=== PATIENT | female | born 1940 | race Caucasian/White ===

== ENCOUNTER 2019-07-21 11:58 | Inpatient (IN) | payer OTHER ==
[~2019-07-21] VITALS: Ht 162.6 cm; Wt 46.7 kg
[2019-07-21 12:52] VITALS: BP_SYST 107
[2019-07-21] MEDS ORDERED: FLU VACC TS2019(65UP)/MF59C/PF 45 MCG/0.5 ML SYRINGE I.M. PRN (13:00)
--- NOTE | 2019-07-21 13:00 | NUR ---
Patient received a/ox2, reoriented to place, time and event, patient denies pain, is cooperative, assessment complete, educated the patient wafer fabrication technician light system and plan of care, she is agreeable at this time, bed in lowest position, three side rails up, bed alarm on, bed close to nursing station, fall and aspiration precautions in place, call light placed within reach.
[2019-07-21] MEDS ORDERED: DONE10TA44 PO (13:03)
[2019-07-21] MEDS ORDERED: MEMA5TAB PO (13:03)
[2019-07-21] MEDS ORDERED: RANI300T7 PO (13:03)
[2019-07-21] MEDS ORDERED: RISP0.5T5 PO (13:03)
[2019-07-21] MEDS ORDERED: CIPR-211 PO (13:06)
[2019-07-21] MEDS ORDERED: VEN2 PO (13:06)
[2019-07-21] MEDS ORDERED: PRO20 PO (13:06)
[2019-07-21] MEDS ORDERED: MONT10TA22 PO (13:06)
[2019-07-21] MEDS ORDERED: ACET325C6 PO (13:06)
--- NOTE | 2019-07-21 13:13 | NUR ---
Dr. Jay paged received call back, orders received will follow up.
--- NOTE | 2019-07-21 13:40 | NUR ---
Attempted Urine Collection attempted straight catheter for urine collection, no urine. Performed bladder scan at bedside, 10ml showing in bladder scan at this time, encouraging patient to drink fluids and to inform nurse when she needs to void, patient verbalized understanding at this time.
[2019-07-21 13:51] LABS: BASOPHILS % (AUTO) 0.4 % (0.0-2.0); EOSINOPHILS # (AUTO) 0.1 K/uL (0.0-0.4); HEMATOCRIT 34.3 % (36-48); HEMOGLOBIN 11.2 g/dL (12.0-16.0); LYMPHOCYTES # (AUTO) 0.5 K/uL (1.0-5.5); LYMPHOCYTES % (AUTO) 10.2 % (20.5-51.5); MEAN CORPUSCULAR HEMOGLOBIN 28 pg (27-31); MEAN CORPUSCULAR HGB CONC 33 % (32-36); MEAN CORPUSCULAR VOLUME 87 fL (79.0-98.0); MONOCYTES # (AUTO) 0.5 K/uL (0.0-1.0); MONOCYTES % (AUTO) 8.9 % (1.7-9.3); NEUTROPHILS # (AUTO) 4.2 K/uL (1.8-7.7); NEUTROPHILS % (AUTO) 79.5 % (40.0-70.0); PLATELET COUNT (AUTO) 127 K/uL (130-430); RED BLOOD CELL COUNT(AUTO) 3.95 MIL/uL (4.2-6.2); RED CELL DISTRIBUTION WIDTH 14.5 % (9.0-15.0); WHITE BLOOD COUNT (AUTO) 5.4 K/uL (4.8-10.8)
[2019-07-21 14:08] LABS: ALANINE AMINOTRANSFERASE 12 U/L (12-78); ALBUMIN 2.9 g/dL (3.4-4.8); ANION GAP 6 (5-15); ASPARTATE AMINOTRANSFERASE 13 U/L (10-37); CALCIUM 8.6 mg/dL (8.4-11.0); CHLORIDE 102 mmol/L (98-107); CREATININE 0.77 mg/dL (0.55-1.30); GLUCOSE 99 mg/dL (70-99); POTASSIUM 3.6 mmol/L (3.5-5.1); SODIUM SERUM 135 mmol/L (136-145); TOTAL BILIRUBIN 0.2 mg/dL (0.0-1.0); UREA NITROGEN, BLOOD 16 mg/dL (8-21)
--- NOTE | 2019-07-21 14:43 | NUR ---
IV Insertion IV started on Left AC 24G. Successful after 2 attempts. Will observe for any signs of infiltration.
[2019-07-21 15:26] VITALS: BP_SYST 102
--- NOTE | 2019-07-21 15:50 | NUR ---
Called Radiology to confirm if CT head order was received, order received, to be followed up this evening.
--- NOTE | 2019-07-21 16:02 | NUR ---
RN rounds/Patient voided patient resting in bed, awake, offered water, patient drank water and tolerated well, aspiration precautions in place, offered patient to use bedpan, she agreed and was able to void, urine sent to lab for urinalysis and culture, will follow up with results, patient denies pain, has no other needs at this time, continuing to monitor, bed in lowest position, three side rails up, bed alarm on, bed close to nursing station, call light placed within reach, fall and aspiration precautions in place.
[2019-07-21 16:30] LABS: BILIRUBIN,URINE NEGATIVE (NEGATIVE); BLOOD, URINE 3+ (NEGATIVE); COLOR,URINE YELLOW (YELLOW); GLUCOSE,URINE NEGATIVE (NEGATIVE); KETONES,URINE NEGATIVE (NEGATIVE); LEUKOCYTE ESTERASE ,URINE NEGATIVE (NEGATIVE); NITRITE, URINE NEGATIVE (NEGATIVE); PROTEIN URINE NEGATIVE (NEGATIVE); UROBILINOGEN,URINE 0.2 (0.2-1.0)
--- NOTE | 2019-07-21 16:35 | NUR ---
Dr. Jay rounds assessed patient, will follow up with new orders.
[2019-07-21 16:41] LABS: CLARITY/URINE SLIGHTLY HAZY (CLEAR)
[2019-07-21] MEDS: KCL 20 mEq in D5/0.45NS 1000mL 1,000 ML IV SCH (16:53)
[2019-07-21 16:55] LABS: BACTERIA,URINE RARE /HPF (None Seen); MUCUS,URINE None Seen /LPF (None Seen); WBC,URINE 0-3 /HPF (0-3)
--- NOTE | 2019-07-21 17:03 | NUR ---
IVF/ Flu Vaccine patient resting in bed, awake, denies pain, educated on IVF uses and on Flu Vaccination benefits, patient verbalized understanding at this time, IV line is patent and infusing well, Flu vaccine administered per protocol, no other needs at this time, continuing to monitor, bed in lowest position, three side rails up, bed alarm on, bed close to nursing station, fall and aspiration precautions in place, call light placed within patient reach. Addendum: 07/21/19 at 1707 by William Salinas RN Educated the patient on uses and benefits of SCDs, she verbalized understanding, applied per MD orders.
--- NOTE | 2019-07-21 17:14 | NUR ---
Patient off the unit to CT scan at this time, patient in stable condition.
--- NOTE | 2019-07-21 17:30 | NUR ---
Patient back on the unit from CT scan, stable condition, placed patient back on IV fluids and SCD's, IV line is patent and infusing well, set up patient to eat dinner, aspiration precautions in place, continuing to monitor patient, bed in lowest position, three side rails up, bed alarm on, bed close to nursing station, fall precautions also in place, call light placed within reach.
--- NOTE | 2019-07-21 18:40 | NUR ---
Closing note patient resting in bed, awake, finished eating dinner, all needs met, will endorse report to NOC shift nurse, IV line is patent and infusing well, bed in lowest position, three side rails up, bed alarm on, bed close to nursing station, fall and aspiration precautions in place, call light placed within reach.
[2019-07-21 20:00] VITALS: BP_SYST 100
[2019-07-21] MEDS: ALBUTEROL SULFATE 2 MG TABLET PO SCH (21:00)
[2019-07-21 23:46] VITALS: BP_SYST 111
[2019-07-22] VITALS (7 sets, daily range): BP systolic 96–156
--- NOTE | 2019-07-22 07:15 | NUR ---
sbar report recieved at the bedside. patient alert awake x 2. breathing even and unlabored. no oxygen noted. abdomen soft and non distended. has no iv access noted. has bruise/abrasion on the left forehead noted. purplish noted. no odor nor drainage noted. vitals signs stable. afebrile. bed low position, alarmed and locked. call lights within reach.
[2019-07-22] MEDS: MONTELUKAST 10 MG TABLET PO SCH (08:58)
[2019-07-22] MEDS: FLUoxetine HCL 10 MG CAPSULE (PROzac) PO SCH (08:59)
[2019-07-22] MEDS: FAMOTIDINE 20 MG TABLET PO SCH (09:00)
--- NOTE | 2019-07-22 09:00 | NUR ---
placed a iv access on the left wrist #22. continue to infused iv fluids of D51/2NS +20 at 75cc/hr infusing on well. wrapped with kerlix on it.
[2019-07-22] MEDS: MEMANTINE HCL 5 MG TABLET PO SCH (09:01)
[2019-07-22] MEDS: DONEPEZIL HCL 5 MG TABLET (ARICEPT) PO SCH (09:01)
[2019-07-22] MEDS: ALBUTEROL SULFATE 2 MG TABLET PO SCH ×2 (09:11→20:21)
--- NOTE | 2019-07-22 09:30 | NUR ---
inna care and total bed bath done by Luis Mackenzie.
--- NOTE | 2019-07-22 09:59 | NUR ---
Nutrition Update Narciso Scale 15 noted. Pt admitted for hypotension, dehydration, multiple falls Diet: mechanical soft BMI: 17.7 kg/m2 RD to follow per nutrition care standards.
--- NOTE | 2019-07-22 10:00 | NUR ---
due medication given by the student nurse and with their clinical instructor. crushed with apple sauce.
--- NOTE | 2019-07-22 11:28 | NUR ---
Safety Pt pulling out I.V. Educated pt on why it is needed. Continue to reinforce necessity of I.V. Pt is unable to state purpose of I.V. Ensured bed is in low position, bed brake on. Call light within reach, demonstrated correct usage.
--- NOTE | 2019-07-22 12:00 | NUR ---
patient self fed, but need to assists. no complained made so far.
--- NOTE | 2019-07-22 15:00 | NUR ---
patient awake but confused. but stable.
--- NOTE | 2019-07-22 16:52 | NUR ---
PATIENT STILL ASLEEP. NO COMPLAINED MADE. QUITE AT THIS TIME.
--- NOTE | 2019-07-22 17:15 | NUR ---
PT STABLE. QUITE AND RESTING.
--- NOTE | 2019-07-22 18:32 | NUR ---
PATIENT EATING DINNER AND ASSISTS ON ADLS.
--- NOTE | 2019-07-22 19:15 | NUR ---
ENDORSED TO INCOMING NURSE PAPI CRUZ.
--- NOTE | 2019-07-22 19:46 | NUR ---
PM SHIFT ASSESSMENT Received patient lying in bed, aox2, on room air, vital signs stable, patient denies any pain or discomfort at this time, IV line to left wrist intact and patent, IVF of d51/2 NS with 20 KCL infusing at 75 ml/hr, patient repositioned and turned with pillow support, incontinent, bilateral SCDs to lower legs in place, fall and safety measures in place, bed alarm on, will closely monitor.
[2019-07-22] MEDS: KCL 20 mEq in D5/0.45NS 1000mL 1,000 ML IV SCH ×2 (20:21→23:06)
--- NOTE | 2019-07-22 21:02 | NUR ---
MED PASS Patient awake, due medications administered, aspiration precautions maintained, patient tolerated well, incontinence care provided, repositioned for comfort, safety measures in place, will closely monitor.
--- NOTE | 2019-07-22 22:07 | NUR ---
RN ROUNDS Patient awake, denies any pain or discomfort at this time, repositioned for comfort, safety measures in place, bed alarm on, will closely monitor.
[2019-07-23 00:15] VITALS: BP_SYST 107
--- NOTE | 2019-07-23 00:24 | NUR ---
RN ROUNDS Patient asleep, breathing is even and unlabored, vital signs stable, repositioned with pillow support, safety measures in place, bed alarm on, will closely monitor.
--- NOTE | 2019-07-23 02:17 | NUR ---
RN ROUNDS Patient continues to sleep, breathing is even and unlabored, repositioned with pillow support, safety measures in place, bed alarm on, will closely monitor.
--- NOTE | 2019-07-23 04:13 | NUR ---
RN ROUNDS Patient continues to sleep, breathing is even and unlabored, repositioned with pillow support, safety measures in place, bed alarm on, will monitor.
--- NOTE | 2019-07-23 06:38 | NUR ---
CLOSING NOTE Patient awake, denies any pain or discomfort at this time, remains on room air, IV line intact and patent, IVF continues to infuse, repositioned for comfort, needs attended to, no significant change through out the shift, safety measures maintained, will continue to monitor until report given to am nurse.
--- NOTE | 2019-07-23 07:30 | NUR ---
Opening note Patient resting in bed at this time, A/Ox2, no SOB. No complaints of pain. IV patent, intact, and infusing fluids as ordered. no adverse side effects noted. On safety and aspiration precautions, HOB kept elevated, 3 side rails up, call light within reach. Patient in stable condition. Will continue to monitor.
[2019-07-23 08:26] VITALS: BP_SYST 122
[2019-07-23] MEDS: ALBUTEROL SULFATE 2 MG TABLET PO SCH ×2 (08:44→20:21)
[2019-07-23] MEDS: MONTELUKAST 10 MG TABLET PO SCH (08:45)
[2019-07-23] MEDS: FLUoxetine HCL 10 MG CAPSULE (PROzac) PO SCH (08:45)
[2019-07-23] MEDS: DONEPEZIL HCL 5 MG TABLET (ARICEPT) PO SCH (08:45)
[2019-07-23] MEDS: MEMANTINE HCL 5 MG TABLET PO SCH (08:45)
[2019-07-23] MEDS: FAMOTIDINE 20 MG TABLET PO SCH (08:45)
--- NOTE | 2019-07-23 08:56 | NUR ---
Medications All morning medications given as ordered. Tolerating well. No nausea, no vomiting. Patient able to swallow medications Okay.
--- NOTE | 2019-07-23 10:44 | NUR ---
skin care Skin care provided, linens changed. Dressing done on left forearm skin tear, no active bleeding. Peeled skin noted. foam dressing applied. ice water refilled, no other needs.
[2019-07-23 11:18] VITALS: BP_SYST 114
--- NOTE | 2019-07-23 12:33 | NUR ---
Lunch Patient sitting up in bed, eating lunch, tolerating well. No nausea, no vomiting. No complaints of abdominal pain.
[2019-07-23] MEDS: KCL 20 mEq in D5/0.45NS 1000mL 1,000 ML IV SCH (13:23)
--- NOTE | 2019-07-23 14:36 | NUR ---
rounds patient noted with incontinence of urine, perineal care provided. Gown changed. Ice water refilled. Offered patient water, patient drank 1 cup. Offered patient bedpan, patient denied need. No other needs at this time.
[2019-07-23 15:16] VITALS: BP_SYST 118
--- NOTE | 2019-07-23 15:43 | NUR ---
Dietitian Recommendations * Recommend mechanical soft diet with Ensure Enlive BID (provides 700 kcal/day and 40 gm of protein/day) * Encourage PO intake LP, RD Please refer to Nutrition Assessment for details. Signed: 07/23/19 at 1543 by Briana PASCUAL <Co-Signature Required> Co-Signed: 07/23/19 at [address] Addendum: 07/23/19 at 1544 by Briana PASCUAL Amended: Links added.
--- NOTE | 2019-07-23 15:53 | NUR ---
Rounds Patient resting in bed at this time, no complaints of pain. Offered patient bed berman, patient denied need. Noted with incontinence of bladder. Skin care provided. No other needs at this time.
--- NOTE | 2019-07-23 17:30 | NUR ---
Dinner patient sitting up in bed at this time, eating dinner, tolerating well. no nausea, no vomiting. No complaints of pain.
--- NOTE | 2019-07-23 19:01 | NUR ---
Closing note Patient resting in bed at this time, A/Ox2, no SOB. No complaints of pain. IV patent, intact, and infusing fluids as ordered. no adverse side effects noted. On safety and aspiration precautions, HOB kept elevated, 3 side rails up, call light within reach. Patient in stable condition. All needs met.
--- NOTE | 2019-07-23 19:15 | NUR ---
ROUNDS PATIENT IN BED, AWAKE, ALERT, ORIENTED X2, VITALS STABLE, NO SIGNS OF ANY PAIN AND DISCOMFORT NOTED. ASSESSMENT DONE AND DOCUEMNTED. SEE FLOWSHEET. NEEDS ATTENDED TO. SAFETY AND FALL MEASURES IN PLACED. BED IN LOW AND LOCKED POSITION. BED ALARM ON. WILL CONTINUE TO MONITOR.
[2019-07-23 20:00] VITALS: BP_SYST 126
--- NOTE | 2019-07-23 21:16 | NUR ---
MEDICATION DUE MEDICATIONS GIVEN SCHEDULED, TOLERATED WELL. WILL CONTINUE TO MONITOR.
[2019-07-24] VITALS: BP_SYST 116
--- NOTE | 2019-07-24 00:14 | NUR ---
PATIENT RESTING: Patient resting quietly. No acute distress noted. Vital signs within normal range.
--- NOTE | 2019-07-24 02:13 | NUR ---
NOTES PATIENT ASLEEP, RESPIRATIONS EVEN AND UNLABORED, WILL CONTINUE TO MONITOR.
--- NOTE | 2019-07-24 04:08 | NUR ---
NOTES PATIENT ASLEEP, VITALS STABLE, NO SIGNS OF ANY PAIN AND DISCOMFORT NOTED. WILL CONTINUE TO MONITOR.
[2019-07-24] MEDS: KCL 20 mEq in D5/0.45NS 1000mL 1,000 ML IV SCH ×2 (06:06→16:00)
--- NOTE | 2019-07-24 06:28 | NUR ---
CLOSING NOTES PATIENT AWAKE, VITALS STABLE, IV INFILTRATED AND REINSERTED ON THE RIGHT FOREARM G. 22, PATENT. ALL NEEDS ATTENDED TO. SAFETY MEASURES MAINTAINED. BED IN LOW AND LOCKED POSITION. CALL LIGHT PLACED WITHIN REACH.
[2019-07-24 08:00] VITALS: BP_SYST 141
--- NOTE | 2019-07-24 08:00 | NUR ---
Initial notes- In bed, awake. Oriented to name and birthdate at this time. Able to feed self slowly. has good appetite. Incontinent of bowel and bladder. IVF infusing well. No acute distress noted. Will continue to monitor.
[2019-07-24] MEDS: FLUoxetine HCL 10 MG CAPSULE (PROzac) PO SCH (08:36)
[2019-07-24] MEDS: DONEPEZIL HCL 5 MG TABLET (ARICEPT) PO SCH (08:36)
[2019-07-24] MEDS: MONTELUKAST 10 MG TABLET PO SCH (08:36)
[2019-07-24] MEDS: FAMOTIDINE 20 MG TABLET PO SCH (08:36)
[2019-07-24] MEDS: MEMANTINE HCL 5 MG TABLET PO SCH (08:36)
--- NOTE | 2019-07-24 09:00 | NUR ---
Pt take all her morning meds.
--- NOTE | 2019-07-24 10:42 | NUR ---
Pt sleeping at this time. Breathing even and unlabored. No distress noted.
[2019-07-24] MEDS: ALBUTEROL SULFATE 2 MG TABLET PO SCH (10:44)
--- NOTE | 2019-07-24 11:20 | NUR ---
Discharge Planning: DCP faxed referral to [facility] (f [phone] p [phone]) DCP to follow up Addendum: 07/24/19 at 1252 by Sanna Ordonez DP DCP followed up lm with Angelina at [facility] ( [phone] p [phone]) for Ron. Addendum: 07/24/19 at 1617 by Sanna Ordonez DP DCP spoke to Ron at [facility] (f [phone] p [phone]) pt accepted to [facility], transportation arrange [place] [id number] ([phone]) Will Call nurse made aware, patient packet taken to nurse station. Nurse will call family to make aware.
--- NOTE | 2019-07-24 11:20 | NUR ---
Ambulate with physical therapy with front wheel walker inside the room only. Pt stated that she feels tired.
[2019-07-24 12:10] VITALS: BP_SYST 112
--- NOTE | 2019-07-24 14:00 | NUR ---
Pt just woke up. Give her food for lunch. Denies any pain or discomfort. No acute distress noted.
--- NOTE | 2019-07-24 16:22 | NUR ---
Pt has a bed in [facility], trying to reach the son Chase Running but unable to reach. leave voice mail.
--- NOTE | 2019-07-24 16:30 | NUR ---
Son Called back and agreed patient to be transfererred to [facility].
--- NOTE | 2019-07-24 17:11 | NUR ---
Spoke with Fariha at [facility]. Pickup arranged for 1900 hours to [facility].
--- NOTE | 2019-07-24 17:27 | NUR ---
Report given to Shohsana at [facility].
[2019-07-24 18:14] VITALS: BP_SYST 110
--- NOTE | 2019-07-24 18:42 | NUR ---
In bed, No acute distress noted. Waiting for ambulance to come.
--- NOTE | 2019-07-24 19:41 | NUR ---
DISCHARGE Patient in bed, awake, no s/s of acute distress noted. Breathing even and unlabored. Vitals stable. IV site at right forearm, no signs of infiltration or infection noted, patent. All needs met throughout shift. Name band removed. Report given to EMTCammie, from EMT of [facility]. Patient escorted out via gurney.
== END 2019-07-24 19:42 | DRG 690 ==
LOC: STU 12:08
PROVIDERS: ADMIT Family Medicine; ATTEND Family Medicine
DX: N39.0 Urinary tract infection, site not specified (principal); E44.0 Moderate protein-calorie malnutrition; S09.90XA Unspecified injury of head, initial encounter; D64.9 Anemia, unspecified; F03.90 Unspecified dementia, unspecified severity, without behavioral disturbance, psychotic disturbance, mood disturbance, and anxiety; I10 Essential (primary) hypertension; M19.90 Unspecified osteoarthritis, unspecified site; R29.6 Repeated falls; W17.89XA Other fall from one level to another, initial encounter; Y93.89 Activity, other specified; Y92.89 Other specified places as the place of occurrence of the external cause; Y99.8 Other external cause status
CPT/HCPCS: 36415; 70450-TC; 80053; 81000-TC; 85025; 87086; 97116-GP; 97530-GP; G0378

== ENCOUNTER 2019-10-01 16:33 | Inpatient (IN) | payer OTHER ==
[~2019-10-01] VITALS: Ht 167.6 cm; Wt 47.6 kg
[~2019-10-01 16:33] MED LIST: ACET325C6 PO; CIPR-211 PO; DONE10TA44 PO; MEMA5TAB PO; MONT10TA22 PO; PRO20 PO; RANI300T7 PO; RISP0.5T5 PO; VEN2 PO
--- NOTE | 2019-10-01 17:40 | NUR ---
Patient to ER bed 1 to gown for evaluation. Side rails up. Report given to NANCY Fajardo.
--- NOTE | 2019-10-01 17:46 | NUR ---
Patient AAO x 4 BIB wheelchair accompanied by caregiver c/o general weakness x 1 week. Patient is from [facility]. Caregiver reports patient has been unable to stand, so she has been referred by Dr. Alvarez to go to the ER. She reports cough, but patient has not been actively coughing today. Even chest rise and fall with respirations. No acute distress noted. Will continue to monitor.
[2019-10-01] MEDS ORDERED: NACL 0.9% 1,000 ML IV ONE (17:47)
--- NOTE | 2019-10-01 17:48 | NUR ---
ER Dr. Huntley at bedside examining patient.
--- NOTE | 2019-10-01 18:11 | NUR ---
Radiology at bedside for CXR
[2019-10-01 18:39] LABS: BASOPHILS % (AUTO) 0.1 % (0.0-2.0); HEMATOCRIT 33.8 % (36-48); HEMOGLOBIN 11.2 g/dL (12.0-16.0); LYMPHOCYTES # (AUTO) 0.3 K/uL (1.0-5.5); LYMPHOCYTES % (AUTO) 2.7 % (20.5-51.5); MEAN CORPUSCULAR HEMOGLOBIN 29 pg (27-31); MEAN CORPUSCULAR HGB CONC 33 % (32-36); MEAN CORPUSCULAR VOLUME 88 fL (79.0-98.0); MONOCYTES # (AUTO) 1.3 K/uL (0.0-1.0); MONOCYTES % (AUTO) 11.6 % (1.7-9.3); NEUTROPHILS # (AUTO) 9.3 K/uL (1.8-7.7); NEUTROPHILS % (AUTO) 85.6 % (40.0-70.0); PLATELET COUNT (AUTO) 111 K/uL (130-430); RED BLOOD CELL COUNT(AUTO) 3.84 MIL/uL (4.2-6.2); RED CELL DISTRIBUTION WIDTH 15.5 % (9.0-15.0); WHITE BLOOD COUNT (AUTO) 10.8 K/uL (4.8-10.8)
[2019-10-01 18:55] LABS: ANION GAP 7 (5-15); CHLORIDE 101 mmol/L (98-107); CREATININE 0.87 mg/dL (0.55-1.30); GLUCOSE 114 mg/dL (70-99); SODIUM SERUM 136 mmol/L (136-145); UREA NITROGEN, BLOOD 23 mg/dL (8-21)
[2019-10-01 19:07] LABS: ALANINE AMINOTRANSFERASE 103 U/L (12-78); ALBUMIN 2.7 g/dL (3.4-4.8); ASPARTATE AMINOTRANSFERASE 58 U/L (10-37); TOTAL BILIRUBIN 0.5 mg/dL (0.0-1.0)
--- NOTE | 2019-10-01 21:06 | NUR ---
Patient will be admitted to care of Dr. Jay. Admitted to Med/Surg unit. Will go to room 121B. Belongings list completed. Complete and up to date summary report printed. SBAR report given via telephone to Beatris. Will be taken to the room via gurney by EMT Owen.
[2019-10-01] MEDS ORDERED: AZITHROMYCIN 500 MG in NS 250 ML IV ONE (21:15)
[2019-10-01 21:27] LABS: BILIRUBIN,URINE NEGATIVE (NEGATIVE); BLOOD, URINE 1+ (NEGATIVE); CLARITY/URINE CLEAR (CLEAR); COLOR,URINE YELLOW (YELLOW); GLUCOSE,URINE NEGATIVE (NEGATIVE); KETONES,URINE NEGATIVE (NEGATIVE); LEUKOCYTE ESTERASE ,URINE NEGATIVE (NEGATIVE); NITRITE, URINE NEGATIVE (NEGATIVE); PROTEIN URINE TRACE (NEGATIVE); UROBILINOGEN,URINE 0.2 (0.2-1.0)
--- NOTE | 2019-10-01 21:35 | NUR ---
ADMISSION NOTE Received patient from ER via julia, received report from GLUE DRIER OPERATOR. Patient admitted with diagnosis of PNA. Patient oriented to hospital routine, call light, toileting and safety-patient verbalized understanding.
[2019-10-01 21:39] LABS: BACTERIA,URINE FEW /HPF (None Seen)
[2019-10-01 22:00] VITALS: BP_SYST 141
[2019-10-01 22:03] VITALS: BP_SYST 141
--- NOTE | 2019-10-01 22:30 | NUR ---
RECIEVED PATIENT FROM ER VIA CANDYRYANELI, PATIENT ALERT TO NAME WITH CONFUSION, RESPIRATIONS EVEN AND UNLABORED, ROOM AIR, INCONTINENT OF B/B , KEPT CLEAN AND DRY, SKIN INTACT,, D5 1/2 NS + 20 MEQ K @ 75 ML/HR, RESTING QUIETLY IN BED WITH SR'S UP X'S 3,CALL LIGHT WITHIN REACH, WILL CONTINUE TO MONITOR. Addendum: 10/02/19 at 0712 by [facility] one Stacie CRUZ patient has moist cough, no sputum or secretions coughed up during assessment
[2019-10-01] MEDS: KCL 20 mEq in D5/0.45NS 1000mL 1,000 ML IV SCH (23:55)
[2019-10-01] MEDS ORDERED: KCL 20 mEq in D5/0.45NS 1000mL 1,000 ML IV ONE (23:55)
[2019-10-01] MEDS ORDERED: AZITHROMYCIN 500 MG/VIAL (ZITHROMAX) IV ONE (23:55)
--- NOTE | 2019-10-02 | NUR ---
CONTINUES TO REST QUIETLY IN BED WITH EYES CLOSED, EASILY AROUSED, DENIES PAIN, WILL CONTINUE TO MONITOR.
[2019-10-02 00:52] VITALS: BP_SYST 141
[2019-10-02 01:32] VITALS: BP_SYST 126
--- NOTE | 2019-10-02 04:00 | NUR ---
PATIENT IS TURNED AND REPOSITIONED FOR COMFORT, DENIES PAIN, NO NOTED CHANGES IN PRESENT CONDITION, IVF INFUSING WITHOUT DIFFICULTY.WILL CONTINUE TO MONITOR.
[2019-10-02 06:46] VITALS: BP_SYST 128
[2019-10-02] MEDS: cefTRIAXone 1 GM in D5W 50 ML IV SCH (07:04)
--- NOTE | 2019-10-02 07:35 | NUR ---
RECEIVED REPORT @ BS FROM NIGHT RN. PATIENT AWAKE, CONFUSED, NON-VERBAL. SKIN W/D TO TOUCH, PT OOB SITTING CHAIR W/ C/O FEELING SLEEPY.IVF INFUSING D51/2 NS + 20MEQ KCL @ 75 ML/HR VIA LEFT HAND, SITE INTACT, WRAPPED FOR SAFETY/ SITE PROTECTION.@ PRESENT VOICES NO C/O PAIN OR DISCOMFORT, WILL CONT. TO MONITOR FOR SAFETY OR CHANGES.
[2019-10-02 08:29] VITALS: BP_SYST 131
[2019-10-02] MEDS ORDERED: cefTRIAXone 1 GM VIAL IM SCH (09:00)
--- NOTE | 2019-10-02 09:00 | NUR ---
PATIENT WAS FED FOR BREAKFAST, ATE 90% OF MEAL. NO AM MEDS. WATCHING TV @PRESENT NAD NOTED.
[2019-10-02] MEDS: KCL 20 mEq in D5/0.45NS 1000mL 1,000 ML IV SCH (09:50)
--- NOTE | 2019-10-02 10:10 | NUR ---
Nutrition Update Naricso Scale 13 noted. Pt admitted for pneumonia. Diet: mechanical soft BMI: 16.9 kg/m2 RD to follow per nutrition care standards.
--- NOTE | 2019-10-02 10:21 | NUR ---
PATIENT ASLEEP AT PRESENT , NO C/O PAIN OR DISCOMFORT, NAD NOTED.
--- NOTE | 2019-10-02 10:39 | NUR ---
RT NOTES secretary to board of commissioners NANCY Gonzales to have charge nurse Luis Carlos follow up on HHN tx .
[2019-10-02 11:30] VITALS: BP_SYST 117
--- NOTE | 2019-10-02 12:10 | NUR ---
PT ATE WELL FOR LUNCH 100%. ASLEEP AT PRESENT NO S/S OF DISTRESS.
--- NOTE | 2019-10-02 14:22 | NUR ---
RT NOTES RN Luis Carlos to follow up on HHN order for clarification.
[2019-10-02 16:00] VITALS: BP_SYST 102
--- NOTE | 2019-10-02 16:30 | NUR ---
IVF TUBING LEAKING, IV TUBING CHANGED, IV SITE W/ NEG FLUSH, D/C'D. NEW IV PLACEMENT 20G TO LEFT FA, W/ POS FLUSH, AND WRAPPED W/ KERLIX FOR SAFETY. PATIENT TOLERATED WELL. IVF INFUSING PER ORDERS.
--- NOTE | 2019-10-02 18:20 | NUR ---
PT SITTING IN BED W/ HOB UP AT 90 DEGREES, EATING DINNER, ATE 80% OF MEAL, AND TOLERATED WELL, NAD. IVF INFUSING WELL VIA INFUSION PUMP, IV SITE REMAINS INTACT.
--- NOTE | 2019-10-02 19:40 | NUR ---
REPORT GIVEN TO NIGHT RN BROWN AT BEDSIDE.
[2019-10-02] MEDS: LEVALBUTEROL HCL 0.63 MG/3 ML VIAL.NEB INH SCH (20:56)
[2019-10-02] MEDS: AZITHROMYCIN 500 MG in NS 250 ML IV SCH (21:36)
[2019-10-03 00:28] VITALS: BP_SYST 125
[2019-10-03] MEDS: LEVALBUTEROL HCL 0.63 MG/3 ML VIAL.NEB INH SCH ×4 (01:00→20:04)
[2019-10-03] MEDS: KCL 20 mEq in D5/0.45NS 1000mL 1,000 ML IV SCH ×2 (01:02→13:52)
[2019-10-03] MEDS: cefTRIAXone 1 GM in D5W 50 ML IV SCH (05:54)
[2019-10-03 08:00] VITALS: BP_SYST 146
--- NOTE | 2019-10-03 08:00 | NUR ---
Note Pt sitting up in bed eating her breakfast, being fed by SEISMIC PROSPECTING OBSERVER HELPER at this time. No SOB/resp distress or pain/discomfort noted at this time. IV in left hand intact and patent infusing IVF's well. Pt next to nurses' station for closer observation for needs and care. Call light within reach.
[2019-10-03] MEDS: MEGESTROL ACETATE 400 MG/10 ML UDC PO SCH ×2 (08:29→21:21)
[2019-10-03] MEDS: DONEPEZIL HCL 5 MG TABLET (ARICEPT) PO SCH (08:29)
[2019-10-03] MEDS: ALBUTEROL SULFATE 2 MG TABLET PO SCH ×2 (08:29→21:21)
[2019-10-03] MEDS: MONTELUKAST 10 MG TABLET PO SCH (08:29)
[2019-10-03] MEDS: MEMANTINE HCL 5 MG TABLET PO SCH (08:29)
[2019-10-03] MEDS: FLUoxetine HCL 10 MG CAPSULE (PROzac) PO SCH (11:18)
--- NOTE | 2019-10-03 12:00 | NUR ---
Note Pt's son at bedside for the last hour. Pt denies any needs at this time. Pt has been in and out of sleep all shift. No needs noted at this time. Call light within reach.
[2019-10-03 12:38] VITALS: BP_SYST 116
--- NOTE | 2019-10-03 15:35 | NUR ---
Note Dr Jay at bedside doing assessment. Orders written and carried out. notified that lab called and MRSA results are positive. Order for medication to be put in at this time by Dr Jay. No needs noted. Call light within reach.
--- NOTE | 2019-10-03 15:50 | NUR ---
Note Pt moved to Isolation room 101. All belongings were moved as well from 121C to 101A.
--- NOTE | 2019-10-03 18:00 | NUR ---
Nutrition Assessment (short note d/t high patient load) A - RD reviewed pertinent nutrition-related info via EMR (physician notes/nursing notes/labs/meds/nursing care trends/care activity). Admission Dx: Pneumonia PMH: DJD, dementia, asthma per physician notes Current Diet Order/Nutrition Support: Mechanical soft x1 day Ht: 66"/5'6" Wt: 103#/47 kg IBW: 130#/59 kg %IBW: 80% UBW: N/A %UBW: N/A BMI: 16.9 kg/m2 (underweight, at risk for malnutrition) Subjective Info: Pt seen high risk d/t BMI less than 18.5 kg/m2. Pt was seen sleeping, covered in blankets at time of RD visit. No family present at bedside. Per EMR, pt appears to be eating well; PO intake average of 81% x4 meals. Pt may benefit from ONS and Segundo BID for lean muscle mass preservation. ESTIMATED NUTRITIONAL NEEDS CALORIES/DAY: 4757-0587 kcal/day (30-35 kcal/kg CBW for wt gain promotion) PROTEIN/DAY: 56-71 gm/day (1.2-1.5 gm/kg CBW for wt gain promotion) FLUID/DAY: 1.2-1.4 L/day (25-30 ml/kg CBW for geriatric maintenance) D - Malnutrition related to physiological causes as evidenced by BMI: 16.39 kg/m2 and 80% of IBW. I - Recommend mechanical soft diet w/ Ensure Enlive TID, Segundo BID (supplements provide ~1230 kcal/day, 60 gm protein/day) M - Monitor appetite and PO intakes w/ goal of pt meeting over 75% of estimated nutritional needs, labs trending WNL, normal GI function, and skin integrity/wt maintenance E - High risk; RD to F/U within 2-3 days
--- NOTE | 2019-10-03 18:06 | NUR ---
Dietitian Recommendations * Recommend mechanical soft diet w/ Ensure Enlive TID, Segundo BID (supplements provide ~1230 kcal/day, 60 gm protein/day) LP, RD Please refer to Nutrition Assessment for details.
--- NOTE | 2019-10-03 18:35 | NUR ---
Note Pt was checked on q1' and PRN all shift for needs and care. No SOB/resp distress or pain/discomfort noted at this time. IV in left hand intact and patent infusing IVF's well. No needs noted at this time. Call light within reach.
--- NOTE | 2019-10-03 19:30 | NUR ---
OPENING NOTES Patient is resting, no signs of acute respiratory distress observed. IVF running, IV site patent, dressings c/d/i. Oriented patient to use of call light, call light within reach, bed alarm on, bed at lowest position. Will continue to monitor.
[2019-10-03 20:00] VITALS: BP_SYST 133
[2019-10-03] MEDS: AZITHROMYCIN 500 MG in NS 250 ML IV SCH (21:21)
[2019-10-03] MEDS: MUPIROCIN 1 GM OIN.PF.APP NS SCH (21:30)
--- NOTE | 2019-10-03 22:40 | NUR ---
Warm blanket provided to patient, no distress observed. will continue to monitor.
[2019-10-04] VITALS: BP_SYST 127
[2019-10-04] MEDS: LEVALBUTEROL HCL 0.63 MG/3 ML VIAL.NEB INH SCH ×3 (00:09→19:27)
--- NOTE | 2019-10-04 00:39 | NUR ---
Patient is asleep, rise and fall of chest observed. No signs of distress observed. Will continue to monitor.
--- NOTE | 2019-10-04 02:33 | NUR ---
Patient has eyes closed, rise and fall of chest observed. will continue to monitor.
--- NOTE | 2019-10-04 04:21 | NUR ---
Patient is resting, no signs of acute respiratory distress observed. Perineal care provided. Will continue to monitor.
[2019-10-04] MEDS: cefTRIAXone 1 GM in D5W 50 ML IV SCH (06:01)
--- NOTE | 2019-10-04 06:36 | NUR ---
CLOSING NOTES Patient is resting, no respiratory distress observed. IVF running, dressings c/d/i. Call light within reach, bed alarm on, bed at lowest position. Contact precautions kept throughout shift. All needs met throughout shift. Will endorse care to oncoming shift.
[2019-10-04] MEDS: DONEPEZIL HCL 5 MG TABLET (ARICEPT) PO SCH (08:36)
[2019-10-04] MEDS: FLUoxetine HCL 10 MG CAPSULE (PROzac) PO SCH (08:36)
[2019-10-04] MEDS: MEMANTINE HCL 5 MG TABLET PO SCH (08:36)
[2019-10-04] MEDS: MEGESTROL ACETATE 400 MG/10 ML UDC PO SCH ×2 (08:36→20:37)
[2019-10-04] MEDS: MONTELUKAST 10 MG TABLET PO SCH (08:36)
[2019-10-04] MEDS: MUPIROCIN 1 GM OIN.PF.APP NS SCH (08:37)
--- NOTE | 2019-10-04 08:40 | NUR ---
Skin care /comfort Perineal care given , no sign of pressure sore kept dry/clean repositioned
[2019-10-04] MEDS: KCL 20 mEq in D5/0.45NS 1000mL 1,000 ML IV SCH (08:47)
[2019-10-04 08:50] VITALS: BP_SYST 129
[2019-10-04] MEDS: ALBUTEROL SULFATE 2 MG TABLET PO SCH ×2 (10:25→20:45)
--- NOTE | 2019-10-04 11:00 | NUR ---
MD Rounds Seen and examined by DR. Mcrae , tolerating meal well, IV fluid discontinued, no sign of acur=te respiratory distress.
[2019-10-04 11:07] VITALS: BP_SYST 117
[2019-10-04 12:29] VITALS: BP_SYST 117
[2019-10-04 15:32] VITALS: BP_SYST 110
--- NOTE | 2019-10-04 16:00 | NUR ---
Patient repositioned after perineal care given by staff every 2 hours with pillow support.
--- NOTE | 2019-10-04 19:18 | NUR ---
OPENING NOTES Receive report from morning shift nurse. Patient AOX1, lying in . No signs of respiratory distress and discomfort noted. Denies pain and discomfort at this time. No SOB. On contact precautions. IV site, patency noted. SCD's operating well. Call light within in reach, educated patient to use call light when assistance needed. Bed locked and lowest position. Bed alarm on. Safety precautions in place. Will continue to monitor
[2019-10-04] MEDS: AZITHROMYCIN 500 MG in NS 250 ML IV SCH (20:36)
[2019-10-04] MEDS: MUPIROCIN 2% TOPICAL OINTMENT 22 GM NS SCH (20:37)
--- NOTE | 2019-10-04 20:37 | NUR ---
MED PASS Due medication given at this time, patient tolerated well. No signs of respiratory distress noted. Denies pain and discomfort at this time. SCD's operating well. IV antibiotic, infusing well, patency noted. On contact precautions. Safety precautions in place. Will continue to monitor
--- NOTE | 2019-10-04 23:35 | NUR ---
RN ROUNDS Patient asleep at this time. No signs of respiratory distress and discomfort noted. Breathing even and unlabored.SCD's operating well. Safety precautions in place. Will continue to monitor
[2019-10-04 23:55] VITALS: BP_SYST 102
[2019-10-05] MEDS: LEVALBUTEROL HCL 0.63 MG/3 ML VIAL.NEB INH SCH ×4 (01:12→19:23)
--- NOTE | 2019-10-05 01:35 | NUR ---
RN ROUNDS Patient asleep at this time. No signs of respiratory distress and discomfort noted. Breathing even and unlabored. SCD's operating well. Safety precautions in place. Will continue to monitor
[2019-10-05] MEDS: cefTRIAXone 1 GM in D5W 50 ML IV SCH (05:03)
--- NOTE | 2019-10-05 06:54 | NUR ---
CLOSING NOTES Patient AOX1, awake and lying in bed. No signs of respiratory distress and discomfort noted. Denies pain and discomfort at this time. No SOB. On contact precautions maintained throughout the shift. IV site, patency noted. SCD's operating well. Call light within in reach. Bed locked and lowest position. Bed alarm on. Safety precautions in place. All needs met throughout the shift. Will continue to monitor until endorsed to oncoming shift nurse for continuity of care.
--- NOTE | 2019-10-05 07:40 | NUR ---
Initial notes: Patient awake, alert and oriented x1. Patient stable. I.v. access patent. Call light within reach. SCD on BLE. Safety measures in placed. Report received at bedside.
[2019-10-05 08:00] VITALS: BP_SYST 135
[2019-10-05 08:02] LABS: BASOPHILS % (AUTO) 0.4 % (0.0-2.0); EOSINOPHILS # (AUTO) 0.1 K/uL (0.0-0.4); HEMATOCRIT 32.6 % (36-48); HEMOGLOBIN 10.7 g/dL (12.0-16.0); LYMPHOCYTES # (AUTO) 0.8 K/uL (1.0-5.5); LYMPHOCYTES % (AUTO) 13.6 % (20.5-51.5); MEAN CORPUSCULAR HEMOGLOBIN 29 pg (27-31); MEAN CORPUSCULAR HGB CONC 33 % (32-36); MEAN CORPUSCULAR VOLUME 88 fL (79.0-98.0); MONOCYTES # (AUTO) 0.6 K/uL (0.0-1.0); MONOCYTES % (AUTO) 9.9 % (1.7-9.3); NEUTROPHILS # (AUTO) 4.2 K/uL (1.8-7.7); NEUTROPHILS % (AUTO) 75.1 % (40.0-70.0); PLATELET COUNT (AUTO) 166 K/uL (130-430); RED BLOOD CELL COUNT(AUTO) 3.69 MIL/uL (4.2-6.2); RED CELL DISTRIBUTION WIDTH 15.4 % (9.0-15.0); WHITE BLOOD COUNT (AUTO) 5.6 K/uL (4.8-10.8)
[2019-10-05 08:23] LABS: ANION GAP 6 (5-15); CALCIUM 9.2 mg/dL (8.4-11.0); CHLORIDE 109 mmol/L (98-107); CREATININE 0.59 mg/dL (0.55-1.30); GLUCOSE 102 mg/dL (70-99); POTASSIUM 4.2 mmol/L (3.5-5.1); SODIUM SERUM 139 mmol/L (136-145); UREA NITROGEN, BLOOD 17 mg/dL (8-21)
[2019-10-05] MEDS: MUPIROCIN 2% TOPICAL OINTMENT 22 GM NS SCH ×2 (10:01→21:01)
[2019-10-05] MEDS: MEGESTROL ACETATE 400 MG/10 ML UDC PO SCH ×2 (10:01→20:53)
[2019-10-05] MEDS: DONEPEZIL HCL 5 MG TABLET (ARICEPT) PO SCH (10:02)
[2019-10-05] MEDS: FLUoxetine HCL 10 MG CAPSULE (PROzac) PO SCH (10:02)
[2019-10-05] MEDS: MONTELUKAST 10 MG TABLET PO SCH (10:02)
[2019-10-05] MEDS: MEMANTINE HCL 5 MG TABLET PO SCH (10:02)
[2019-10-05] MEDS: ALBUTEROL SULFATE 2 MG TABLET PO SCH ×2 (10:10→21:00)
[2019-10-05 11:46] VITALS: BP_SYST 109
--- NOTE | 2019-10-05 13:00 | NUR ---
rounds: Patient resting on bed. no distress noted.
[2019-10-05 17:04] VITALS: BP_SYST 107
--- NOTE | 2019-10-05 18:45 | NUR ---
Closing Notes: Patient resting bed. Stable. Needs attended. Call light within reach. Report will be given to maintenance technician 2nd shift.
[2019-10-05 19:00] VITALS: BP_SYST 140
[2019-10-05 20:00] VITALS: BP_SYST 117
--- NOTE | 2019-10-05 20:00 | NUR ---
received pt in bed v/s and assessment done sa,e stable no distress noted,pm snack amd accucheck dome same within normal limuts.
[2019-10-05] MEDS: AZITHROMYCIN 500 MG in NS 250 ML IV SCH (21:01)
--- NOTE | 2019-10-06 | NUR ---
received pt in bed v/s and assessment done same stable c/o a headache and cannot sleep because of noise ,medicated for pain now resting with door closed and advised to turn tv off. Addendum: 10/06/19 at 0159 by Carl plier worker charted on wrong pt
[2019-10-06 00:55] VITALS: BP_SYST 100
[2019-10-06] MEDS: LEVALBUTEROL HCL 0.63 MG/3 ML VIAL.NEB INH SCH ×4 (01:12→19:51)
--- NOTE | 2019-10-06 04:00 | NUR ---
am care given made comfortable
[2019-10-06] MEDS: cefTRIAXone 1 GM in D5W 50 ML IV SCH (05:32)
--- NOTE | 2019-10-06 07:25 | NUR ---
Initial notes: Patient alert, awake and oriented x1. Stable. I.V. access patent. On isolation precaution. Call light within reach. Safety measures in placed. Report received at bedside.
[2019-10-06 08:00] VITALS: BP_SYST 108
[2019-10-06] MEDS: MEGESTROL ACETATE 400 MG/10 ML UDC PO SCH ×2 (10:14→23:01)
[2019-10-06] MEDS: DONEPEZIL HCL 5 MG TABLET (ARICEPT) PO SCH (10:14)
[2019-10-06] MEDS: MONTELUKAST 10 MG TABLET PO SCH (10:18)
[2019-10-06] MEDS: FLUoxetine HCL 10 MG CAPSULE (PROzac) PO SCH (10:18)
[2019-10-06] MEDS: MEMANTINE HCL 5 MG TABLET PO SCH (10:18)
[2019-10-06] MEDS: ALBUTEROL SULFATE 2 MG TABLET PO SCH ×2 (10:18→23:01)
[2019-10-06] MEDS: MUPIROCIN 2% TOPICAL OINTMENT 22 GM NS SCH ×2 (10:24→23:01)
--- NOTE | 2019-10-06 11:35 | NUR ---
ROUNDS: Patient had a BM, soft and formed. Cleaned and changed underpad.
--- NOTE | 2019-10-06 13:21 | NUR ---
Nutrition Follow Up A - RD reviewed pertinent nutrition-related info via EMR (physician notes/nursing notes/labs/meds/nursing care trends/care activity). Admission Dx: Pneumonia PMH: DJD, dementia, asthma per physician notes Current Diet Order/Nutrition Support: Mechanical soft diet w/ Ensure Enlive TID, Segundo BID x 3 days Ht: 66"/5'6" Wt: 103#/47 kg IBW: 130#/59 kg %IBW: 80% BMI: 16.9 kg/m2 (underweight, at risk for malnutrition) Subjective Info: Pt seen for follow up, sitting up in chair. Per RN report, pt ate well, seems to need some assistance during meals. Segundo has not been provided this morning, RD gave instructions on how to administer Segundo to RN. Pt seems to be eating well, 77-85% average of meals. ESTIMATED NUTRITIONAL NEEDS CALORIES/DAY: 9868-3316 kcal/day (30-35 kcal/kg CBW for wt gain promotion) PROTEIN/DAY: 56-71 gm/day (1.2-1.5 gm/kg CBW for wt gain promotion) FLUID/DAY: 1.2-1.4 L/day (25-30 ml/kg CBW for geriatric maintenance) D - Malnutrition related to physiological causes as evidenced by BMI: 16.39 kg/m2 and 80% of IBW. (*ongoing) I - Continue: mechanical soft diet w/ Ensure Enlive TID, Segundo BID (supplements provide ~1230 kcal/day, 65 gm protein/day) M - Monitor appetite and PO intakes w/ goal of pt meeting over 75% of estimated nutritional needs, labs trending WNL, normal GI function, and skin integrity/wt maintenance E - High risk; RD to F/U within 2-3 days
--- NOTE | 2019-10-06 13:25 | NUR ---
Dietitian recommendation Continue: mechanical soft diet w/ Ensure Enlive TID, Segundo BID (supplements provide ~1230 kcal/day, 65 gm protein/day) PRISON, RD
--- NOTE | 2019-10-06 19:43 | NUR ---
Pt is fully awake, alert and oriented to her name only. Pt is resting quietly in bed. No acute distress noted. Saline lock is intact in LFA. Fall and safety precautions are in place.
[2019-10-06 20:00] VITALS: BP_SYST 109
--- NOTE | 2019-10-06 21:00 | NUR ---
Resting quietly in bed. Fall and safety precautions are in place.
[2019-10-06] MEDS: AZITHROMYCIN 500 MG in NS 250 ML IV SCH (23:00)
--- NOTE | 2019-10-06 23:00 | NUR ---
No acute distress noted at this time. Fall and safety precautions are in place.
[2019-10-07] MEDS: LEVALBUTEROL HCL 0.63 MG/3 ML VIAL.NEB INH SCH ×3 (00:53→13:52)
--- NOTE | 2019-10-07 01:00 | NUR ---
Sleeping comfortably in bed.
--- NOTE | 2019-10-07 03:00 | NUR ---
Sleeping without any distress noted.
--- NOTE | 2019-10-07 05:00 | NUR ---
Pt is awake and not in any distress. Fall and safety precautions are in place.
[2019-10-07] MEDS: cefTRIAXone 1 GM in D5W 50 ML IV SCH (06:13)
--- NOTE | 2019-10-07 06:50 | NUR ---
All pt's needs were attended to. No distress noted at this this time. Will endorse to day shift nurse.
[2019-10-07 07:23] LABS: BASOPHILS % (AUTO) 0.5 % (0.0-2.0); EOSINOPHILS # (AUTO) 0.1 K/uL (0.0-0.4); HEMATOCRIT 31.8 % (36-48); HEMOGLOBIN 10.3 g/dL (12.0-16.0); LYMPHOCYTES # (AUTO) 0.7 K/uL (1.0-5.5); LYMPHOCYTES % (AUTO) 9.2 % (20.5-51.5); MEAN CORPUSCULAR HEMOGLOBIN 29 pg (27-31); MEAN CORPUSCULAR HGB CONC 32 % (32-36); MEAN CORPUSCULAR VOLUME 89 fL (79.0-98.0); MONOCYTES # (AUTO) 0.4 K/uL (0.0-1.0); MONOCYTES % (AUTO) 5.6 % (1.7-9.3); NEUTROPHILS # (AUTO) 6.6 K/uL (1.8-7.7); NEUTROPHILS % (AUTO) 83.7 % (40.0-70.0); PLATELET COUNT (AUTO) 222 K/uL (130-430); RED BLOOD CELL COUNT(AUTO) 3.59 MIL/uL (4.2-6.2); RED CELL DISTRIBUTION WIDTH 15.9 % (9.0-15.0); WHITE BLOOD COUNT (AUTO) 7.9 K/uL (4.8-10.8)
--- NOTE | 2019-10-07 07:30 | NUR ---
Opening note patient resting in bed at this time, A/ox1, no complaints of pain. No SOB. Iv patent, intact. No infiltration noted. 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 On safety and aspiration precautions, HOB kept elevated, 3 side rails up, call light within reach. patient in stable condition. Will continue to monitor.
[2019-10-07 08:00] VITALS: BP_SYST 137
[2019-10-07 08:01] LABS: ANION GAP 6 (5-15); CALCIUM 8.1 mg/dL (8.4-11.0); CHLORIDE 107 mmol/L (98-107); CREATININE 0.68 mg/dL (0.55-1.30); GLUCOSE 115 mg/dL (70-99); POTASSIUM 4.9 mmol/L (3.5-5.1); SODIUM SERUM 140 mmol/L (136-145); UREA NITROGEN, BLOOD 47 mg/dL (8-21)
[2019-10-07] MEDS: MEMANTINE HCL 5 MG TABLET PO SCH (08:23)
[2019-10-07] MEDS: MUPIROCIN 2% TOPICAL OINTMENT 22 GM NS SCH (08:23)
[2019-10-07] MEDS: DONEPEZIL HCL 5 MG TABLET (ARICEPT) PO SCH (08:23)
[2019-10-07] MEDS: ALBUTEROL SULFATE 2 MG TABLET PO SCH (08:23)
[2019-10-07] MEDS: MEGESTROL ACETATE 400 MG/10 ML UDC PO SCH (08:23)
[2019-10-07] MEDS: FLUoxetine HCL 10 MG CAPSULE (PROzac) PO SCH (08:24)
[2019-10-07] MEDS: MONTELUKAST 10 MG TABLET PO SCH (08:24)
--- NOTE | 2019-10-07 09:00 | NUR ---
medications All morning medications given as ordered. No adverse side effects noted. patient in stable condition.
--- NOTE | 2019-10-07 11:12 | NUR ---
Rounds patient noted with Bowel movement, skin care provided. Patient working with physical therapist, patient able to stand and walk 20 feet with front wheeled walker.
[2019-10-07 11:58] VITALS: BP_SYST 115
--- NOTE | 2019-10-07 12:59 | NUR ---
Discharge Planning: STILL CLEANER TUBE spoke with physician who states that he would like pt to go to SNF. STILL CLEANER TUBE placed call to pt's son, Chase ([phone]) who is agreeable to SNF placement and states that pt has been to [facility] in the past. Pt's son would like pt to return to [facility]. [facility] has faxed pt's information to [facility] ([phone]) for review. STILL CLEANER TUBE or DC strategic planner will follow up to check bed availability.
--- NOTE | 2019-10-07 13:30 | NUR ---
lunch patient sitting up in bed at this time, eating lunch, tolerating well. No nausea, no vomiting noted.
[2019-10-07 13:50] VITALS: BP_SYST 115
--- NOTE | 2019-10-07 14:22 | NUR ---
Discharge Planning: Pt has been accepted at [facility]; Yash assigned pt to 1C; per Yash pt can come anytime. MACHINE PRECISION ETCHER arranged S ambulance with [facility] ([phone]); picked edge sewing machine operator at 4:00pm. MACHINE PRECISION ETCHER spoke with charge nurse to confirm picked edge sewing machine operator time. Packet has been placed at nurses station. MACHINE PRECISION ETCHER placed call to pt's son, Chase ([phone]) and left a message for him with the details of pt's discharge.
--- NOTE | 2019-10-07 14:50 | NUR ---
skin care Skin care provided, linens changed, no other needs at this time.
[2019-10-07 15:16] VITALS: BP_SYST 115
[2019-10-07 15:53] VITALS: BP_SYST 110
--- NOTE | 2019-10-07 16:11 | NUR ---
rounds patient sitting up in bed at this time, no complaints of pain. Iv patent, intact. No infiltration noted. No other needs at this time.
--- NOTE | 2019-10-07 16:24 | NUR ---
PT TRANSFERRED Report given to antony at [facility]. Transfer packet with Transfer Orders and Medication Reconciliation form given to EMT with report. Exitcare provided. [facility] ID band removed, replaced with ID band with pt's name and . IV catheter intact and dressing applied. All belongings sent with patient. Patient left floor via gurney escorted by EMT in no distress.
== END 2019-10-07 16:24 | DRG 178 ==
LOC: SED 16:33 → SMU 20:23
PROVIDERS: ADMIT Family Medicine; ATTEND Family Medicine
DX: J15.6 Pneumonia due to other Gram-negative bacteria (principal); N39.0 Urinary tract infection, site not specified; E44.0 Moderate protein-calorie malnutrition; Z68.1 Body mass index [BMI] 19.9 or less, adult; D64.9 Anemia, unspecified; F03.90 Unspecified dementia, unspecified severity, without behavioral disturbance, psychotic disturbance, mood disturbance, and anxiety; J45.909 Unspecified asthma, uncomplicated; M19.90 Unspecified osteoarthritis, unspecified site; Z79.899 Other long term (current) drug therapy
CPT/HCPCS: 36415; 71045; 80048; 80053; 81000-TC; 83605; 83735-TC; 85025; 87040-TC; 87081; 87086; 93005; 94640; 94760; 96361; 96365; 99285; J0456; J0696; J1956; J7040; J7050; J7060; J7614